=== PATIENT | female | born 1975 | race Caucasian/White ===

== ENCOUNTER → 2017-10-03 | Emergency (ER) | payer OTHER ==
[~2017-10-03] VITALS: Ht 160 cm; Wt 112.0 kg
[~2017-10-03] MED LIST: CYCLOBENZAPRINE5 MG PO; HYDROCHLOROTH12.5 MG PO; KETOROLAC TROME10 MG PO; METOPROLOL SUCC25 MG PO; NORCO 5-325 TA1 EACH PO; ONDANSETRON HCL8 MG PO; VENTOLIN HFA18 GM INH; VITAMIN D5000 UNIT
== END ==
LOC: ED 00:51
DX: M62.830 Muscle spasm of back (principal); F17.200 Nicotine dependence, unspecified, uncomplicated; Z88.8 Allergy status to other drugs, medicaments and biological substances; Z79.899 Other long term (current) drug therapy
CPT/HCPCS: 71046; 96374; 96375; 96376; 99283; J1170; J1885; J2405

== ENCOUNTER 2017-11-20 07:37 | Day surgery (SDC) | payer OTHER ==
[~2017-11-20] VITALS: Ht 160 cm; Wt 112.0 kg
--- NOTE | 2017-11-20 10:32 | NUR ---
11/20/17 1032 Mouna Marcelino 1024 PT ARRIVED DROWSY ON 3L NC. PT DENIES PAIN AND NAUSEA. 1030 PT REORIETED TO PACU.
--- NOTE | 2017-11-21 08:28 | OR ---
[facility] [address] [facility] [place] [address] Signed DATE OF OPERATION: 11/20/2017 SURGEON: Grace Molina MD PREOPERATIVE DIAGNOSES: Father had rectal cancer symptoms through his 40s and ended up with diagnosis at 51-1/2. By the time he finished his surgery and chemotherapy, he at age 53 from his colon cancer. POSTOPERATIVE DIAGNOSES: 1. 4 mm polyp at 50 cm. 2. 4 mm polyp at 22 cm. 3. 3 mm polyps x2 in the rectum. PROCEDURE: Colonoscopy with hot biopsy up to hepatic flexure. ESTIMATED BLOOD LOSS: None. INDICATIONS: Pablo is a 42-year-old female at 5 feet 4 inches, 243 pounds with a body mass index of 41. She had been asked to see me for her initial colonoscopy. Her father had symptoms of rectal cancer all through his 40s and finally went for his diagnosis at age 51-1/2. He then from the rectal cancer at age 53. She is obviously quite concerned and so she is here to have her colonoscopy. I gave her a booklet on colonoscopy. We looked at that together along with the risks including, but not limited to gas bloating, crampy abdominal pain, bleeding, perforation, requiring surgery, and missed diagnosis. We also discussed the need for IV conscious sedation. She had expressed understanding and wished to proceed. PROCEDURE NOTE: Pablo was taken into our endoscopy suite and placed in the left lateral decubitus position. She was given divided doses of 200 mg of Versed and 200 mcg of fentanyl. A digital rectal exam was performed and this was unremarkable. The adult colonoscope was introduced and advanced under direct visualization of the camera. Her prep was quite good. She had a long redundant colon. However, she was frequently awake during our procedure. She was fighting the scope most of the way. We finally made it to the hepatic flexure. At that point, we simply ran out of the scope. We pulled the scope in and out several times and there were no loops to reduced and therefore we never could Electronically Signed By: GRACE MOLINA MD 11/21/17 0828 PATIENT NAME: PABLO BARBER OPERATIVE REPORT DATE OF : 77 REPORT #: [id number] PHYSICIAN: GRACE MOLINA MD PCP: SUNNY VÁSQUEZ MD REPORT IS CONFIDENTIAL AND NOT TO BE RELEASED WITHOUT AUTHORIZATION [address] [address] Signed get past the hepatic flexure. Consequently, she might consider propofol on her next endoscopy. After this, the scope was slowly withdrawn. The above polyps were removed with a hot biopsy forceps. The scope had been retroflexed in the rectum. There was no additional pathology above the anal canal. After this, the gas was suctioned out. The colonoscope removed. Pablo tolerated the procedure quite well. RECOMMENDATIONS: I will see Pablo back in my office in 7 to 14 days to review her results. She will need a barium enema to evaluate the right colon. She should consider propofol on her next endoscopy. Grace Molina MD ALB/MODL /[id number] cc: MD Sunny Owen MD Copies: GRACE MOLINA MD, REX MD ~ Electronically Signed By: GRACE MOLINA MD 11/21/17 0828 PATIENT NAME: PABLO BARBER OPERATIVE REPORT DATE OF : 77 REPORT #: [id number] PHYSICIAN: GRACE MOLINA MD PCP: SUNNY VÁSQUEZ MD REPORT IS CONFIDENTIAL AND NOT TO BE RELEASED WITHOUT AUTHORIZATION
== END 2017-11-20 10:58 | disposition home or self-care (01) ==
LOC: DS 07:37 → OPS 07:37 → DS 09:00 → OPS 10:58
PROVIDERS: Colon & Rectal Surgery
PROC: 0DBE8ZX Excision of Large Intestine, Via Natural or Artificial Opening Endoscopic, Diagnostic (ICD-10-PCS; 2017-11-20)
PROC: 0DBP8ZX Excision of Rectum, Via Natural or Artificial Opening Endoscopic, Diagnostic (ICD-10-PCS; principal; 2017-11-20 09:00)
DX: Z12.11 Encounter for screening for malignant neoplasm of colon (principal); K63.5 Polyp of colon; K62.1 Rectal polyp; I10 Essential (primary) hypertension; J45.909 Unspecified asthma, uncomplicated; E66.01 Morbid (severe) obesity due to excess calories; G43.909 Migraine, unspecified, not intractable, without status migrainosus; F41.9 Anxiety disorder, unspecified; F17.210 Nicotine dependence, cigarettes, uncomplicated; Z98.890 Other specified postprocedural states; Z80.0 Family history of malignant neoplasm of digestive organs; Z68.41 Body mass index [BMI] 40.0-44.9, adult; Z79.899 Other long term (current) drug therapy
CPT/HCPCS: 36415; 84703; 99153; G0500; J2250; J3010

== ENCOUNTER 2021-04-04 15:10 | Emergency (ER) | payer OTHER ==
[~2021-04-04] VITALS: Ht 160 cm; Wt 104.3 kg
[2021-04-04] MEDS ORDERED: CHILDREN'S ASPI81 M1 PO (15:51)
--- NOTE | 2021-04-04 16:14 | EKG ---
[facility] [address] [facility] [place], [place] [address] Signed Normal sinus rhythm Normal ECG No previous ECGs available Confirmed by SHARMILA KAN MD ([id number]) on 04/04/2021 4:14:20 PM Electronically Signed By: SHARMILA KAN MD 04/04/21 1614 PATIENT NAME: KARRIE BARBER Electrocardiogram DATE OF : 77 PHYSICIAN: SHARMILA KAN MD REPORT #: [id number] REPORT IS CONFIDENTIAL AND NOT TO BE RELEASED WITHOUT AUTHORIZATION
== END 2021-04-04 18:35 | disposition home or self-care (01) ==
LOC: ED 15:10
DX: R07.89 Other chest pain (principal); I10 Essential (primary) hypertension; F17.200 Nicotine dependence, unspecified, uncomplicated; Z88.8 Allergy status to other drugs, medicaments and biological substances; Z79.899 Other long term (current) drug therapy; Z79.82 Long term (current) use of aspirin
CPT/HCPCS: 71045; 80053; 84484; 85025; 85379; 93005; 93010; 99285-25

== ENCOUNTER 2024-12-14 14:32 | Emergency (ER) | payer BC ==
[~2024-12-14] VITALS: Ht 160 cm; Wt 140.0 kg
[~2024-12-14 14:32] MED LIST changes: +CHILDREN'S ASPI81 M1 PO
[2024-12-14 15:08] LABS: BASOPHILS 0.8 % (0-2); EOSINOPHILS 0.7 % (0-6); HEMATOCRIT 39.6 % (35.0-50.0); HEMOGLOBIN 13.1 g/dL (12.0-18.0); LYMPHOCYTES 25.4 % (24-44); MCHC 33.2 g/dl (30-36); MCV 87.6 fl (81-99); MONOCYTES 3.1 % (0-12); PLATELET COUNT 386 K/uL (140-440); RBC 4.52 M/ul (4.3-5.7); RDW 14.6 (10.5-15.0)
[2024-12-14 15:31] LABS: ALBUMIN 3.6 g/dL (3.4-5.0); ALBUMIN/GLOBULIN RATIO 0.97 (1.1-2.4); ALCOHOL, MEDICAL <3 ng/dL (<3); ALKALINE PHOSPHATASE 65 U/L (46-116); ALT (SGPT) 25 U/L (14-59); ANION GAP 13.9 (7-21); AST (SGOT) 11 U/L (15-37); BILIRUBIN, TOTAL 0.3 mg/dL (0.2-1.0); BUN/CREATININE RATIO 17.77 (6.0-28.6); CALCIUM 8.7 mg/dL (8.5-10.1); CARBON DIOXIDE 24 mmol/L (21-32); CHLORIDE 100 mmol/L (98-107); GLOMERULAR FILTRATION RATE,EST 79 mL/min (>60); POTASSIUM 3.9 mmol/L (3.5-5.1); PROTEIN, TOTAL 7.3 g/dL (6.4-8.2); UREA NITROGEN 16 mg/dL (7-18)
[2024-12-14] MEDS ORDERED: SUMATRIPTAN SUC25 MG PO (16:25)
[2024-12-14 20:37] LABS: BILIRUBIN, URINE NEGATIVE (negative); BLOOD/HGB, URINE NEGATIVE (Negative); KETONE, URINE NEGATIVE (Negative); LEUK ESTERASE, URINE NEGATIVE (negative); NITRITE, URINE NEGATIVE (negative)
[2024-12-14 20:38] LABS: PREGNANCY TEST, URINE NEGATIVE (NEG)
[2024-12-14 20:51] LABS: AMPHETAMINES, URINE NEGATIVE (NEGATIVE); BARBITURATES, URINE NEGATIVE (NEGATIVE); BENZODIAZEPINE, URINE NEGATIVE (NEGATIVE); BUPRENORPHINE, URINE NEGATIVE (NEGATIVE); CANNABINOID, URINE POSITIVE (NEGATIVE); COCAINE, URINE NEGATIVE (NEGATIVE); ECSTASY, URINE NEGATIVE (NEGATIVE); FENTANYL, URINE NEGATIVE (NEGATIVE); METHADONE, URINE NEGATIVE (NEGATIVE); OPIATES, URINE NEGATIVE (NEGATIVE); OXYCODONE, URINE NEGATIVE (NEGATIVE); PHENCYCLIDINE, URINE NEGATIVE (NEGATIVE)
[2024-12-14 21:19] VITALS: BP 120/83
== END 2024-12-14 21:15 | disposition home or self-care (01) ==
LOC: ED 14:32
PROVIDERS: Emergency Medicine
DX: R56.9 Unspecified convulsions (principal); I10 Essential (primary) hypertension; M06.9 Rheumatoid arthritis, unspecified; F17.200 Nicotine dependence, unspecified, uncomplicated; Z88.8 Allergy status to other drugs, medicaments and biological substances
CPT/HCPCS: 36415; 70450; 80053; 80307; 81003; 84703; 85025; 99285-25; G0480

== ENCOUNTER 2025-08-30 13:19 | Emergency (ER) | payer BC ==
[~2025-08-30] VITALS: Ht 160 cm; Wt 126.0 kg
[~2025-08-30 13:19] MED LIST changes: +SUMATRIPTAN SUC25 MG PO
[2025-08-30] MEDS ORDERED: LORazepam 2 MG/ML VIAL IV ONE (13:30)
[2025-08-30 13:41] LABS: MCH 30.8 PG (25.6-32.2); MCHC 32.9 g/dL (32.2-35.5); MCV 93.9 fL (79.4-94.8); RBC 4.41 M/uL (3.93-5.22)
[2025-08-30 13:57] LABS: BLOOD/HGB, URINE TRACE-L (Negative); KETONE, URINE NEGATIVE (Negative); LEUK ESTERASE, URINE NEGATIVE (negative); NITRITE, URINE NEGATIVE (negative)
[2025-08-30 13:59] LABS: BASOPHILS, MANUAL DIFF 1; EOSINOPHILS, MANUAL DIFF 2; LYMPHOCYTES, MANUAL DIFF 40; MONOCYTES, MANUAL DIFF 5; NEUTROPHILS, MANUAL DIFF 52
[2025-08-30 14:01] LABS: PREGNANCY TEST, URINE NEGATIVE (NEG)
[2025-08-30] MEDS ORDERED: GABAPENTIN100 MG PO (14:03)
[2025-08-30] MEDS ORDERED: METHOTREXA25 MG/1 M7 INJ (14:03)
[2025-08-30] MEDS ORDERED: FOLIC ACID0.4 MG PO (14:04)
[2025-08-30 14:10] LABS: AMPHETAMINES, URINE NEGATIVE (NEGATIVE); BARBITURATES, URINE NEGATIVE (NEGATIVE); BENZODIAZEPINE, URINE NEGATIVE (NEGATIVE); CANNABINOID, URINE POSITIVE (NEGATIVE); COCAINE, URINE NEGATIVE (NEGATIVE); ECSTASY, URINE NEGATIVE (NEGATIVE); FENTANYL, URINE NEGATIVE (NEGATIVE); METHADONE, URINE NEGATIVE (NEGATIVE); OPIATES, URINE NEGATIVE (NEGATIVE); OXYCODONE, URINE NEGATIVE (NEGATIVE); PHENCYCLIDINE, URINE NEGATIVE (NEGATIVE)
[2025-08-30 14:13] LABS: ALCOHOL, MEDICAL <3 mg/dL (<3); ALT (SGPT) 23 U/L (14-59); AST (SGOT) 6 U/L (15-37); GLOMERULAR FILTRATION RATE,EST 65 mL/min (>60); PROTEIN, TOTAL 7.8 g/dL (6.4-8.2); UREA NITROGEN 11 mg/dL (7-18)
[2025-08-30 14:20] LABS: BACTERIA, URINE NONE SEEN /hpf (negative); CASTS, URINE NONE SEEN \\lpf; CRYSTALS, URINE NONE SEEN (0-1+); EPITHELIAL CELLS, URINE 0 /lpf (0-1+); REFLEX CULTURE, URINE No (No)
[2025-08-30] MEDS ORDERED: SODIUM CHLORIDE 0.9% 1,000 ML IV PRN ×2 (14:30→16:15)
[2025-08-30] MEDS ORDERED: OLANZapine 10 MG TABDIS PO ONE (16:30)
[2025-08-30 17:09] LABS: BASOPHILS 0.7 % (0.1-1.2); EOSINOPHILS 0.3 % (0.7-5.8); LYMPHOCYTES 25.4 % (19.3-51.7); MCH 30.6 PG (25.6-32.2); MCHC 33.0 g/dL (32.2-35.5); MCV 92.9 fL (79.4-94.8); MONOCYTES 5.0 % (4.7-12.5); NEUTROPHILS 68.2 % (34.0-71.1); RBC 3.82 M/uL (3.93-5.22)
[2025-08-30 18:00] VITALS: BP 132/73
== END 2025-08-30 18:00 | disposition home or self-care (01) ==
LOC: ED 13:19
PROVIDERS: Emergency Medicine
DX: G25.9 Extrapyramidal and movement disorder, unspecified (principal); I10 Essential (primary) hypertension; Z79.899 Other long term (current) drug therapy; Z88.8 Allergy status to other drugs, medicaments and biological substances; F17.200 Nicotine dependence, unspecified, uncomplicated
CPT/HCPCS: 36415; 70450; 80053; 80307; 81001; 83605; 83690; 84703; 85025; 96374; 96375; 99284-25; A9270; G0480; J1953; J2060; J7030